=== PATIENT | female | born 1940 | race Caucasian/White ===

== ENCOUNTER 2016-10-26 09:30 | Emergency (ER) | payer OTHER, MEDICARE ==
[2016-10-26 09:43] VITALS: BP 132/80; PULSE 72; TEMP 98.5; BMI 26.7
--- NOTE | 2016-10-26 09:45 | PDOC ---
History of Present Illness - General Chief Complaint: Cold Symptoms Stated Complaint: COUGH Time Seen by Provider: 10/26/16 09:44 - History of Present Illness Initial Comments: 10/26/16 09:51 Chief complaint: Cough History of present illness: Productive cough for 2 days following return from a trip to [place]. No fever/chills, chest pain, or shortness of breath. Begun on Z-David this morning. Also taking Mucinex/Robitussin. Review of systems: As above. In addition, no fever/chills, chest pain, shortness of breath, abdominal pain, nausea, vomiting, diarrhea, urinary tract symptoms, vaginal bleeding or discharge Past medical history: High blood pressure, asthma/COPD, rheumatoid arthritis Medications: Lisinopril/HCTZ, Mobic, and Singulair. Azithromycin begun today Social/family history reviewed and noncontributory Physical exam: Alert and oriented 3, well-developed well-nourished, no acute distress, cheerful and cooperative. Specifically, no tachypnea or dyspnea as noted, the patient is breathing comfortably Afebrile, vital signs normal including O2 saturation of 97% and respiratory rate of 16 and unlabored HEENT clear Neck supple without bruit mass or nodes Chest clear to P&A, full breath sounds throughout bilaterally, no wheezes rales or rhonchi CV S1 and S2 normal without murmur rub or gallop pulses full and symmetric no JVD or edema heart rate 72 and regular Abdomen benign Neurological intact Extremities no CCE. There is mild swelling and inflammation in the MCP joints of the left hand, most notably the second and third. Skin clear, no rash, adequate turgor and what mucous membranes Impression: Patient with rheumatoid arthritis, productive cough, recently return from a trip to [place]. 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 Past History - Past Medical History Allergies/Adverse Reactions: Allergies Allergy/AdvReac Type Severity Reaction Status Date / Time No Known Allergies Allergy Verified 10/26/16 09:34 Home Medications: Ambulatory Orders Azithromycin [Zithromax 250mg Tablets -] 250 mg PO UTDICT 10/26/16 Guaifenesin AC [Robitussin-AC] 1 - 2 tsp PO Q4HWA PRN #120 ml MDD 8 10/26/16 Guaifenesin [Robitussin -] 100 mg PO Q8H PRN 10/26/16 Lisinopril/Hydrochlorothiazide [Lisinopril-Hctz 20-25 mg Tab] 1 each PO DAILY Meloxicam [Mobic] 15 mg PO BID PRN 10/26/16 Montelukast Na [Singulair -] 10 mg PO HS 10/26/16 Asthma: Yes HTN: Yes Other medical history: ARTHRITIS, OSTEOPENIA - Psycho/Social/Smoking Cessation Hx Anxiety: No Suicidal Ideation: No Smoking History: Never smoked Hx Alcohol Use: No Drug/Substance Use Hx: No Substance Use Type: None *Physical Exam - Vital Signs Last Vital Signs Temp Pulse Resp BP Pulse Ox 98.5 F 72 16 132/80 97 10/26/16 09:34 10/26/16 09:34 10/26/16 09:34 10/26/16 09:34 10/26/16 09:34 Medical Decision Making - Medical Decision Making 10/26/16 10:18 Chest x-ray is clear. To continue antibiotics as started by her primary physician. Stronger cough syrup for comfort. Return to ER immediately if chest pain, shortness of breath, or high fever. Otherwise follow-up with primary physician 2-3 days *DC/Admit/Observation/Transfer Diagnosis at time of Disposition: Bronchitis - Discharge Dispostion Disposition: HOME Condition at time of disposition: Stable Admit: No - Prescriptions Prescriptions: Guaifenesin AC [Robitussin-AC] 1 - 2 tsp PO Q4HWA PRN #120 ml MDD 8 PRN Reason: Cough - Referrals Referrals: Eros Christie MD [Primary Care Provider] - 2 Days - Patient Instructions Printed Discharge Instructions: DI for Acute Bronchitis
== END 2016-10-26 10:30 | disposition home or self-care (01) ==
LOC: FER 09:30
DX: J40 Bronchitis, not specified as acute or chronic (principal); I10 Essential (primary) hypertension; M06.9 Rheumatoid arthritis, unspecified; J44.9 Chronic obstructive pulmonary disease, unspecified
CPT/HCPCS: 71020-TC; 99281-25

== ENCOUNTER 2020-07-12 08:25 | Emergency (ER) | payer OTHER, MEDICARE ==
[2020-07-12 08:36] VITALS: BP 154/75; PULSE 83; BMI 27.9
[2020-07-12 08:38] VITALS: TEMP 98.3
[2020-07-12] MEDS ORDERED: DIPHTH,PERTUSS(ACELL),TET 0.5 ML DISP.SYRIN IM ONE ×2 (10:34→11:16)
== END 2020-07-12 11:28 | disposition home or self-care (01) ==
LOC: JER 08:25 → JERFT 08:25
PROC: 0HQGXZZ Repair Left Hand Skin, External Approach (ICD-10-PCS; principal; 2020-07-12)
PROC: 3E0234Z Introduction of Serum, Toxoid and Vaccine into Muscle, Percutaneous Approach (ICD-10-PCS; 2020-07-12)
DX: S61.207A Unspecified open wound of left little finger without damage to nail, initial encounter (principal)
CPT/HCPCS: 90715; 99284-25

== ENCOUNTER 2020-09-01 18:05 | Emergency (ER) | payer OTHER, MEDICARE ==
[2020-09-01 18:32] VITALS: BP 142/91; PULSE 67; TEMP 97.5; BMI 27.6
[2020-09-01 22:58] LABS: BASO % 0.6 % (0-2.0); EOS % 1.8 % (0-4.5); HEMATOCRIT 41.8 % (32.4-45.2); HEMOGLOBIN 14.1 GM/dL (10.7-15.3); LYMPH % 37.6 % (8-40); MCH 30.9 pg (25.7-33.7); MCHC 33.8 g/dl (32.0-36.0); MEAN CELL VOLUME 91.4 fl (80-96); MEAN PLT VOLUME 9.4 fl (7.5-11.1); MONO % 9.1 % (3.8-10.2); NEUT % 50.9 % (42.8-82.8); PLATELET COUNT 172 K/MM3 (134-434); RBC 4.58 M/mm3 (3.60-5.2); RDW 13.8 % (11.6-15.6); WHITE BLOOD COUNT 8.9 K/mm3 (4.0-10.0)
[2020-09-01 23:24] LABS: ALBUMIN 3.9 g/dl (3.4-5.0); BLOOD UREA NITROGEN 33.4 mg/dL (7-18)
[2020-09-01 23:29] LABS: BILIRUBIN,TOTAL 0.4 mg/dL (0.2-1); TOT PROT 7.6 g/dl (6.4-8.2)
== END 2020-09-02 | disposition home or self-care (01) ==
LOC: JER 18:05
DX: R53.1 Weakness (principal); R05 Cough
CPT/HCPCS: 36415; 71046-TC-FY; 80053; 85025; 99284-25; C9803; U0003

== ENCOUNTER 2022-08-29 11:14 | Emergency (ER) | payer OTHER, MEDICARE ==
[2022-08-29 11:28] VITALS: PULSE 78; RESP 18; TEMP 97.9; BMI 25.7
[2022-08-29 12:15] LABS: BILIRUBIN,TOTAL 0.6 mg/dl (0.2-1); CREATININE 1.1 mg/dl (0.55-1.3)
[2022-08-29 13:00] LABS: HEMATOCRIT 38.3 % (32.4-45.2); MCH 30.3 pg (25.7-33.7); MCHC 33.9 g/dl (32.0-36.0); MEAN CELL VOLUME 89.2 fl (80-96); MEAN PLT VOLUME 8.8 fl (7.5-11.1); PLATELET COUNT 199.1 10^3/uL (134-434); RBC 4.29 10^6/uL (3.60-5.2); RDW 13.9 % (11.6-15.6); WHITE BLOOD COUNT 8.5 10^3/uL (4.0-10.8)
[2022-08-29 13:09] LABS: EPITHELIAL CELLS FEW /hpf
[2022-08-29 13:15] LABS: PLATELET ESTIMATE ADEQUATE
[2022-08-29] MEDS ORDERED: SODIUM CHLORIDE 1,000 ML IV STA (13:40)
[2022-08-29 14:57] VITALS: BP 121/68
== END 2022-08-29 14:58 | disposition home or self-care (01) ==
LOC: FER 11:14
PROC: 3E0337Z Introduction of Electrolytic and Water Balance Substance into Peripheral Vein, Percutaneous Approach (ICD-10-PCS; principal; 2022-08-29)
DX: E86.0 Dehydration (principal)
CPT/HCPCS: 0241U-QW; 36415; 70450-TC; 71045-TC-FY; 80053; 81003; 81015; 84484; 85027; 87086; 93005; 99285-25

== ENCOUNTER 2023-12-23 09:43 | Inpatient (IN) | payer OTHER, MEDICARE ==
[2023-12-23 10:03] VITALS: BMI 24.3
[2023-12-23] MEDS: ACETAMINOPHEN 1000 MG/100 ML BAG IVPB ONE (11:08)
[2023-12-23] MEDS ORDERED: ACETAMINOPHEN INJECTION 100 ML IVPB ONE (11:14)
[2023-12-23 11:27] LABS: BASO % 0.6 % (0-2.0); EOS % 1.9 % (0-4.5); HEMATOCRIT 38.9 % (32.4-45.2); LYMPH % 22.6 % (8-40); MCH 29.9 pg (25.7-33.7); MCHC 33.4 g/dl (32.0-36.0); MEAN CELL VOLUME 89.3 fl (80-96); MEAN PLT VOLUME 8.8 fl (7.5-11.1); MONO % 9.1 % (3.8-10.2); NEUT % 65.8 % (42.8-82.8); PLATELET COUNT 188 10^3/uL (134-434); RBC 4.35 M/mm3 (3.60-5.2); RDW 13.9 % (11.6-15.6); WHITE BLOOD COUNT 8.7 K/mm3 (4.0-10.0)
[2023-12-23 11:29] LABS: EPI CELLS 26 /uL (0-25.1); HYALINE CASTS 0 /uL (0-3.1); PH,URINE 5.5 (5.0-8.0); URINE APPEARANCE CLEAR; URINE BACTERIA 127 /uL (0-1359); URINE BILIRUBIN NEGATIVE (NEGATIVE); URINE COLOR YELLOW; URINE GLUCOSE (UA) NEGATIVE (NEGATIVE); URINE KETONE NEGATIVE (NEGATIVE); URINE LEUK ESTERASE 1+ (NEGATIVE); URINE NITRITE NEGATIVE (NEGATIVE); URINE PROTEIN NEGATIVE (NEGATIVE); URINE UROBILINOGEN 0.2 mg/dL (0.2-1.0); URINE WBC 19 /uL (0-25.8)
[2023-12-23 11:33] LABS: POTASSIUM 5.2 mmol/L (3.5-5.1)
[2023-12-23 11:36] LABS: ALBUMIN 3.6 g/dl (3.4-5.0); CALCIUM 9.6 mg/dL (8.5-10.1)
[2023-12-23 11:39] LABS: CREATININE 0.9 mg/dL (0.55-1.3)
[2023-12-23 11:41] LABS: BILIRUBIN,TOTAL 0.5 mg/dL (0.2-1); TOT PROT 7.7 g/dl (6.4-8.2)
[2023-12-23 11:52] LABS: URINE RBC 25 /uL (0-23.9)
[2023-12-23] MEDS: SERTRALINE HCL 25 MG TABLET (FP) PO SCH (21:51)
[2023-12-24 08:18] LABS: BASO % 0.9 % (0-2.0); EOS % 3.2 % (0-4.5); HEMATOCRIT 38.4 % (32.4-45.2); HEMOGLOBIN 12.7 GM/dL (10.7-15.3); LYMPH % 26.6 % (8-40); MCH 29.7 pg (25.7-33.7); MCHC 33.1 g/dl (32.0-36.0); MEAN CELL VOLUME 89.8 fl (80-96); MEAN PLT VOLUME 8.8 fl (7.5-11.1); NEUT % 59.3 % (42.8-82.8); PLATELET COUNT 173 10^3/uL (134-434); RBC 4.28 M/mm3 (3.60-5.2); RDW 14.2 % (11.6-15.6); WHITE BLOOD COUNT 8.3 K/mm3 (4.0-10.0)
[2023-12-24 08:41] LABS: POTASSIUM 4.2 mmol/L (3.5-5.1)
[2023-12-24 09:04] LABS: BLOOD UREA NITROGEN 25.5 mg/dL (7-18); CALCIUM 9.2 mg/dL (8.5-10.1)
[2023-12-24 09:05] LABS: ALBUMIN 3.2 g/dl (3.4-5.0)
[2023-12-24 09:07] LABS: CREATININE 0.8 mg/dL (0.55-1.3); PHOSPHOROUS 3.3 mg/dL (2.5-4.9)
[2023-12-24 09:08] LABS: BILIRUBIN,TOTAL 0.4 mg/dL (0.2-1); TOT PROT 6.7 g/dl (6.4-8.2)
[2023-12-24] MEDS: ACETAMINOPHEN 325 MG TABLET (FP) PO PRN (10:15)
[2023-12-24] MEDS: DONEPEZIL HCL 5 MG TABLET (FP) PO SCH (10:15)
[2023-12-24] MEDS: ATORVASTATIN CA 10 MG TABLET (FP) PO SCH (21:16)
[2023-12-25 07:36] LABS: HEMATOCRIT 37.2 % (32.4-45.2); HEMOGLOBIN 12.5 GM/dL (10.7-15.3); MCH 29.7 pg (25.7-33.7); MCHC 33.6 g/dl (32.0-36.0); MEAN CELL VOLUME 88.5 fl (80-96); MEAN PLT VOLUME 8.6 fl (7.5-11.1); PLATELET COUNT 180 10^3/uL (134-434); RBC 4.21 M/mm3 (3.60-5.2); WHITE BLOOD COUNT 8.4 K/mm3 (4.0-10.0)
[2023-12-25 07:44] LABS: POTASSIUM 4.4 mmol/L (3.5-5.1)
[2023-12-25 07:49] LABS: ALBUMIN 3.1 g/dl (3.4-5.0); BLOOD UREA NITROGEN 28.4 mg/dL (7-18); CALCIUM 8.8 mg/dL (8.5-10.1)
[2023-12-25 07:52] LABS: CREATININE 0.9 mg/dL (0.55-1.3)
[2023-12-25 07:54] LABS: BILIRUBIN,TOTAL 0.4 mg/dL (0.2-1); TOT PROT 6.5 g/dl (6.4-8.2)
[2023-12-25] MEDS: SODIUM CHLORIDE 500 ML IV STA (10:02)
[2023-12-26 21:33] VITALS: BP 111/64; PULSE 77; RESP 16; TEMP 97.8
[2023-12-28] MEDS ORDERED: PALIPERIDONE PALMITATE 156 MG/ML IM SCH (10:00)
== END 2023-12-26 21:15 | DRG 605 ==
LOC: JER 09:43 → JERBED 14:45 → OBSVTOIN 15:50 → J4S 20:32
PROVIDERS: ADMIT Internal Medicine; ATTEND Internal Medicine
PROC: 0HQ0XZZ Repair Scalp Skin, External Approach (ICD-10-PCS; principal; 2023-12-23)
DX: S01.01XA Laceration without foreign body of scalp, initial encounter (principal); F02.80 Dementia in other diseases classified elsewhere, unspecified severity, without behavioral disturbance, psychotic disturbance, mood disturbance, and anxiety; G30.9 Alzheimer's disease, unspecified; I10 Essential (primary) hypertension; J45.909 Unspecified asthma, uncomplicated; E78.5 Hyperlipidemia, unspecified; R29.6 Repeated falls; M43.10 Spondylolisthesis, site unspecified; M48.00 Spinal stenosis, site unspecified; M47.9 Spondylosis, unspecified; R54 Age-related physical debility; F41.8 Other specified anxiety disorders; W19.XXXA Unspecified fall, initial encounter; Y93.9 Activity, unspecified; Y92.89 Other specified places as the place of occurrence of the external cause; Y99.9 Unspecified external cause status
CPT/HCPCS: 36415; 70450-TC; 71046-TC-FY; 72125-TC; 72170-TC-FY; 80053; 81003; 83735; 84100; 84484; 85025; 85027; 87086; 87635; 93005; 93010; 97116-GP; 97161-GP; 99285-25; G0378; J0131

== ENCOUNTER 2024-01-18 18:16 | Inpatient (IN) | payer OTHER, MEDICARE ==
[2024-01-18 18:25] VITALS: RESP 18; BMI 25.4
[2024-01-18 20:00] LABS: BASO % 0.6 % (0-2.0); HEMATOCRIT 37.2 % (32.4-45.2); HEMOGLOBIN 12.5 GM/dL (10.7-15.3); LYMPH % 23.4 % (8-40); MCH 29.8 pg (25.7-33.7); MCHC 33.7 g/dl (32.0-36.0); MEAN CELL VOLUME 88.6 fl (80-96); MEAN PLT VOLUME 8.7 fl (7.5-11.1); MONO % 9.1 % (3.8-10.2); NEUT % 65.9 % (42.8-82.8); PLATELET COUNT 173 10^3/uL (134-434); RDW 14.1 % (11.6-15.6); WHITE BLOOD COUNT 9.8 K/mm3 (4.0-10.0)
[2024-01-18] MEDS ORDERED: ACETAMINOPHEN INJECTION 100 ML IVPB ONE (20:07)
[2024-01-18 20:17] LABS: INR 1.04 (0.83-1.09); PROTHROMBIN TIME (PATIENT) 11.7 SEC (9.7-13.0)
[2024-01-18 20:20] LABS: ACTIVATED PTT 31.3 SECONDS (25.2-36.5)
[2024-01-18 20:22] LABS: POTASSIUM 4.1 mmol/L (3.5-5.1)
[2024-01-18 20:24] LABS: ALBUMIN 3.5 g/dl (3.4-5.0); BLOOD UREA NITROGEN 26.5 mg/dL (7-18)
[2024-01-18 20:27] LABS: CREATININE 0.8 mg/dL (0.55-1.3)
[2024-01-18 20:29] LABS: BILIRUBIN,TOTAL 0.3 mg/dL (0.2-1)
[2024-01-18 20:32] LABS: N-TERMINAL BNP 380.8 pg/ml (5-450)
[2024-01-18] MEDS: ACETAMINOPHEN 1000 MG/100 ML BAG IVPB ONE (20:44)
[2024-01-18] MEDS ORDERED: ENOXAPARIN NA (PORCINE) 60 MG/0.6 ML DISP.SYRIN SQ ONE (21:31)
[2024-01-18] MEDS: ENOXAPARIN NA (PORCINE) 40 MG/0.4 ML DISP.SYRIN SQ ONE (21:35)
[2024-01-19 07:37] LABS: BASO % 0.8 % (0-2.0); EOS % 2.5 % (0-4.5); HEMATOCRIT 35.7 % (32.4-45.2); HEMOGLOBIN 12.1 GM/dL (10.7-15.3); LYMPH % 23.9 % (8-40); MEAN CELL VOLUME 88.4 fl (80-96); MONO % 9.3 % (3.8-10.2); NEUT % 63.5 % (42.8-82.8); PLATELET COUNT 177 10^3/uL (134-434); RBC 4.04 M/mm3 (3.60-5.2); RDW 13.9 % (11.6-15.6); WHITE BLOOD COUNT 7.1 K/mm3 (4.0-10.0)
[2024-01-19 07:51] LABS: ALBUMIN 3.2 g/dl (3.4-5.0); BLOOD UREA NITROGEN 21.1 mg/dL (7-18); CALCIUM 8.7 mg/dL (8.5-10.1)
[2024-01-19 07:54] LABS: CREATININE 0.7 mg/dL (0.55-1.3); PHOSPHOROUS 3.5 mg/dL (2.5-4.9)
[2024-01-19 07:55] LABS: TOT PROT 6.6 g/dl (6.4-8.2)
[2024-01-19 07:56] LABS: BILIRUBIN,TOTAL 0.5 mg/dL (0.2-1)
[2024-01-19] MEDS: ENOXAPARIN NA (PORCINE) 40 MG/0.4 ML DISP.SYRIN SQ SCH (09:30)
[2024-01-19] MEDS: DONEPEZIL HCL 5 MG TABLET (FP) PO SCH (09:30)
[2024-01-19] MEDS ORDERED: ENOXAPARIN NA (PORCINE) 40 MG/0.4 ML DISP.SYRIN SQ SCH (10:00)
[2024-01-19] MEDS: ATORVASTATIN CA 10 MG TABLET (FP) PO SCH (21:38)
[2024-01-20] MEDS: ENOXAPARIN NA (PORCINE) 80 MG/0.8 ML DISP.SYRIN SQ SCH (21:07)
[2024-01-20] MEDS: SERTRALINE HCL 25 MG TABLET (FP) PO SCH (21:25)
[2024-01-21] MEDS: APIXABAN 5 MG TABLET PO SCH (09:13)
[2024-01-21 09:18] LABS: MAGNESIUM 1.9 mg/dL (1.8-2.4)
[2024-01-22 10:00] VITALS: BP 115/78; PULSE 76; TEMP 97.5
== END 2024-01-22 13:23 | disposition home health service (06) | DRG 301 ==
LOC: JER 18:16 → JERBED 21:59 → OBSVTOIN 22:59 → J4W 23:11
PROVIDERS: ADMIT Internal Medicine; ATTEND Internal Medicine
DX: I82.432 Acute embolism and thrombosis of left popliteal vein (principal); F03.90 Unspecified dementia, unspecified severity, without behavioral disturbance, psychotic disturbance, mood disturbance, and anxiety; I10 Essential (primary) hypertension; E78.5 Hyperlipidemia, unspecified; J45.909 Unspecified asthma, uncomplicated; M81.0 Age-related osteoporosis without current pathological fracture
CPT/HCPCS: 0241U-QW; 36415; 71045-TC-FY; 71275-TC; 80053; 80061; 83735; 83880; 84100; 84439; 84443; 84484; 85025; 85610; 85730; 86850; 86900; 86901; 93005; 93010; 93306-TC; 93970-TC; 97116-GP; 97161-GP; 99285-25; G0378; J0131; Q9967

== ENCOUNTER 2024-02-29 12:49 | Emergency (ER) | payer OTHER, MEDICARE ==
[2024-02-29 13:05] VITALS: RESP 16; TEMP 97.8; BMI 25.7
[2024-02-29 16:21] LABS: HEMATOCRIT 42.2 % (32.4-45.2); HEMOGLOBIN 13.9 G/dL (10.7-15.3); MEAN CELL VOLUME 90.7 fl (80-96); MEAN PLT VOLUME 9.3 fl (7.5-11.1); PLATELET COUNT 173.5 10^3/uL (134-434); RBC 4.65 10^6/uL (3.60-5.2); RDW 14.6 % (11.6-15.6)
[2024-02-29 16:25] LABS: INR 1.24 (0.83-1.09)
[2024-02-29 16:28] LABS: ACTIVATED PTT 37.1 SECONDS (25.2-36.5)
[2024-02-29 16:31] LABS: ALBUMIN 4.1 g/dl (3.4-5.0); BILIRUBIN,TOTAL 0.4 mg/dl (0.2-1); CALCIUM 9.5 mg/dl (8.5-10.1); CREATININE 0.9 mg/dl (0.6-1.3); POTASSIUM 3.9 mmol/L (3.5-5.1)
[2024-02-29 16:36] LABS: PLATELET ESTIMATE ADEQUATE
[2024-02-29 17:49] LABS: N-TERMINAL BNP 340.5 pg/ml (5-450)
[2024-02-29 18:33] VITALS: BP 129/72; PULSE 73
== END 2024-02-29 18:20 | disposition home or self-care (01) ==
LOC: FER 12:49
DX: M79.89 Other specified soft tissue disorders (principal); R06.02 Shortness of breath
CPT/HCPCS: 36415; 71045-TC-FY; 80053; 83880; 84484; 85025; 85610; 85730; 93005; 93970-TC; 99285-25

== ENCOUNTER 2024-04-01 11:11 | Emergency (ER) | payer OTHER, MEDICARE ==
[2024-04-01 11:17] VITALS: BP 160/81; PULSE 100; RESP 16; TEMP 97.6; BMI 23.8
[2024-04-01 12:53] LABS: BASO % 0.6 % (0-2.0); EOS % 0.8 % (0-4.5); HEMATOCRIT 34.9 % (32.4-45.2); HEMOGLOBIN 11.9 GM/dL (10.7-15.3); MCH 29.7 pg (25.7-33.7); MCHC 34.1 g/dl (32.0-36.0); MEAN PLT VOLUME 9.1 fl (7.5-11.1); MONO % 8.7 % (3.8-10.2); NEUT % 75.9 % (42.8-82.8); PLATELET COUNT 154 10^3/uL (134-434); RBC 4.01 M/mm3 (3.60-5.2); RDW 14.4 % (11.6-15.6); WHITE BLOOD COUNT 7.8 K/mm3 (4.0-10.0)
[2024-04-01 12:58] LABS: INR 1.07 (0.83-1.09); PROTHROMBIN TIME (PATIENT) 12.1 SEC (9.7-13.0)
[2024-04-01 13:14] LABS: POTASSIUM 4.1 mmol/L (3.5-5.1)
[2024-04-01 13:16] LABS: ALBUMIN 3.6 g/dl (3.4-5.0); BLOOD UREA NITROGEN 34.5 mg/dL (7-18)
[2024-04-01 13:19] LABS: CREATININE 0.9 mg/dL (0.55-1.3)
[2024-04-01 13:21] LABS: BILIRUBIN,TOTAL 0.4 mg/dL (0.2-1); TOT PROT 7.2 g/dl (6.4-8.2)
[2024-04-01 13:24] LABS: N-TERMINAL BNP 720.1 pg/ml (5-450)
[2024-04-01] MEDS ORDERED: CEPHALEXIN MONOHYDRATE 500 MG CAPSULE (UD) ONE (17:47)
[2024-04-01] MEDS: CEPHALEXIN MONOHYDRATE 500 MG CAPSULE (UD) PO ONE (18:01)
== END 2024-04-01 18:10 | disposition home or self-care (01) ==
LOC: JER 11:11
DX: L03.116 Cellulitis of left lower limb (principal); M79.89 Other specified soft tissue disorders
CPT/HCPCS: 36415; 71046-TC-FY; 71275-TC; 80053; 83880; 84484; 85025; 85610; 93005; 93010; 99285-25; Q9967

== ENCOUNTER 2024-05-07 10:19 | Emergency (ER) | payer OTHER, MEDICARE ==
[2024-05-07 10:30] VITALS: BP 112/71; PULSE 69; RESP 20; TEMP 98.4; BMI 28.3
[2024-05-07] MEDS ORDERED: ACETAMINOPHEN 325 MG TABLET (FP) ONE (13:03)
[2024-05-07] MEDS ORDERED: DOXYCYCLINE HYCLATE 100 MG CAPSULE PO ONE (13:03)
[2024-05-07] MEDS: ACETAMINOPHEN 500 MG TABLET (FP) PO ONE (13:07)
[2024-05-07] MEDS: DOXYCYCLINE HYCLATE 100 MG CAPSULE PO ONE (13:07)
== END 2024-05-07 13:39 | disposition home or self-care (01) ==
LOC: FER 10:19
DX: I82.432 Acute embolism and thrombosis of left popliteal vein (principal); L03.116 Cellulitis of left lower limb
CPT/HCPCS: 93971-TC; 99284-25